=== PATIENT | female | born 1985 | race Caucasian/White ===

== ENCOUNTER 2016-10-15 03:04 | Inpatient (IN) | payer BC ==
[2016-10-15] MEDS ORDERED: Famotidine IV* 10 MG/ML 2 ML (20 mg) IV ONE (06:00)
[2016-10-15] MEDS ORDERED: Sodium Citrate/Citric Acid* 15 ML UDC PO ONE (06:00)
[2016-10-15] MEDS ORDERED: Sodium Citrate/Citric Acid* 15 ML UDC ONE (06:15)
[2016-10-15] MEDS ORDERED: Famotidine IV* 10 MG/ML 2 ML (20 mg) ONE (06:15)
[2016-10-15] MEDS ORDERED: Morphine PF AMP (0.5MG/ML)* 5 MG/10 ML AMP ONE (07:20)
[2016-10-15] MEDS ORDERED: OXYTOCIN* 10 UNITS/ML 1 ML VIAL ONE (07:25)
[2016-10-15] MEDS ORDERED: Phenylephrine IV* 40 MCG/ML 10 ML SYRINGE ONE (07:38)
[2016-10-15] MEDS ORDERED: ceFOXitin 2 GM IVPREMIX* 2 GM/50 ML BAG IVPB ONE (07:46)
[2016-10-15] MEDS ORDERED: ceFOXitin 2 GM IVPREMIX* 2 GM/50 ML BAG ONE (07:51)
[2016-10-15] MEDS ORDERED: EPHEDrine (Pressors)* 50 MG/ML VIAL ONE (08:10)
[2016-10-15] MEDS ORDERED: Ondansetron INJ* 2 MG/ML VIAL IV PRN (08:43)
[2016-10-15] MEDS ORDERED: HYDROmorphone* 1 MG/ML 1 ML SYR IV PRN (08:43)
[2016-10-15] MEDS ORDERED: Naloxone* 0.4 MG/ML 1 ML VIAL IV PRN (08:43)
[2016-10-15] MEDS ORDERED: DiMENhydriNATE IV* 50 MG/ML VIAL IV PUSH PRN (08:43)
[2016-10-15] MEDS ORDERED: fentaNYL* 50 MCG/ML 2 ML VIAL (100 MCG VIAL) IV PRN (08:43)
[2016-10-15] MEDS ORDERED: Nalbuphine* 20 MG/ML 1 ML VIAL IV PRN (08:43)
[2016-10-15] MEDS ORDERED: fentaNYL* 50 MCG/ML 2 ML VIAL (100 MCG VIAL) ONE (08:50)
[2016-10-15] MEDS ORDERED: oxyCODONE/Acetamin 5/325 MG* TAB PO PRN ×2 (08:51)
[2016-10-15] MEDS ORDERED: Glycerin ADULT SUPP PR PRN (10:10)
[2016-10-15] MEDS ORDERED: Ibuprofen TAB* 600 MG PO PRN (10:10)
[2016-10-15] MEDS ORDERED: Acetaminophen TAB* 325 MG PO PRN (10:10)
[2016-10-15] MEDS ORDERED: Dibucaine 1% 28.35 GM TUBE PR PRN (10:10)
[2016-10-15] MEDS ORDERED: Witch Hazel PAD* JAR TOPICAL PRN (10:10)
[2016-10-15] MEDS: Ibuprofen TAB* 600 MG PO SCH (10:12)
[2016-10-15] MEDS ORDERED: Oxytocin in LR* 20 UNITS/1,000 ML BAG IVPB SCH (11:00)
[2016-10-15] MEDS: Docusate CAP* 100 MG PO SCH ×2 (13:15→20:22)
[2016-10-15] MEDS: Simethicone CHEW TAB* 80 MG PO SCH ×3 (13:15→20:23)
[2016-10-15] MEDS: Nalbuphine* 20 MG/ML 1 ML VIAL IV PRN ×2 (15:33→23:12)
[2016-10-15] MEDS: Ketorolac INJ* 30 MG/ML 1 ML VIAL IV PRN (16:49)
[2016-10-16] MEDS: Ibuprofen TAB* 600 MG PO SCH ×5 (01:00→21:27)
[2016-10-16] MEDS: oxyCODONE/Acetamin 5/325 MG* TAB PO PRN ×4 (06:10→18:50)
[2016-10-16 06:28] LABS: Hematocrit 28 % (35-47); Hemoglobin 9.2 g/dl (12.0-16.0); Mean Corpuscular HGB Conc 33 g/dl (31-36); Mean Corpuscular Hemoglobin 29 pg (27-31); Mean Corpuscular Volume 87 fL (80-97); Mean Platelet Volume 11 um3 (7.4-10.4); Red Blood Count 3.21 10^6/ul (4.0-5.4); Red Cell Distribution Width 14 % (10.5-15); White Blood Count 15.3 10^3/ul (3.5-10.8)
[2016-10-16] MEDS: Ketorolac INJ* 30 MG/ML 1 ML VIAL IV PRN (08:35)
[2016-10-16] MEDS: Docusate CAP* 100 MG PO SCH ×3 (09:25→21:26)
[2016-10-16] MEDS: Ferrous Gluconate TAB* 324 MG TAB PO SCH ×2 (09:25→21:25)
[2016-10-16] MEDS: Simethicone CHEW TAB* 80 MG PO SCH ×4 (09:25→21:28)
--- NOTE | 2016-10-16 10:23 | OP ---
CC: Dr. John Paul Bullard* DATE OF OPERATION: 10/15/16 - ROOM #117 DATE OF : 81 SURGEON: Aryan Zee MD NUT GRINDER: Dr. John Paul Bullard. SECOND NUT GRINDER: Clive Velásquez CNM ANESTHESIOLOGIST: Dr. Reina. ANESTHESIA: Spinal anesthesia. PRE-OP DIAGNOSES: Full-term intrauterine , breech presentation, intrauterine growth restriction. POST-OP DIAGNOSES: Full-term intrauterine , breech presentation, intrauterine growth restriction. OPERATIVE PROCEDURE: Primary low-flap transverse section via Pfannenstiel. Uterus closed in 2 layers. ESTIMATED BLOOD LOSS: 600 cc. URINE OUTPUT: Per operative note, clear urine. FINDINGS: Viable male in the colleen breech presentation. Clear amniotic fluid. 's are 9 and 9. Weight was 5 pounds 2 ounces. Normal cord gases. Normal-appearing uterus. Normal-appearing fallopian tubes and ovaries bilaterally. COMPLICATIONS: None. COUNTS: Sponge, lap, and needle count were correct x2. CONDITION: The patient was brought to recovery room, awake and stable condition. DESCRIPTION OF PROCEDURE: The patient was brought the operating room. When spinal anesthesia was found to be adequate, the patient was prepped and draped in the usual sterile fashion in the dorsal supine position with a leftward tilt. A Pfannenstiel skin incision was made with a scalpel and carried down to the underlying layer of fascia. The fascial incision was extended with the Hoover scissors. The fascia was grasped with the Yamilet clamps and the rectus muscle was dissected using sharp and blunt dissection. The rectus muscle was found to be in the midline. Peritoneum was identified, tented up, and entered bluntly. Peritoneal incision was extended bluntly. The bladder blader was inserted. The vesicouterine peritoneum was identified and a bladder flap was created. The bladder blade was reinserted. A low-flap transverse incision was made on the uterus to the level of the membranes, the uterus was thick. The uterine incision was extended laterally bluntly. The membranes were ruptured. A small amount of clear amniotic fluid was encountered. The infant was delivered atraumatically from the colleen breech presentation. The cord was milked. The cord was clamped and cut, and the was handed off to the waiting boxing instructor, Dr. Aguilera. 's were 9 and 9. A segment of cord was sent for cord gases. The placenta was delivered. The placenta was sent to pathology. The uterus was exteriorized. The uterus was cleared of all clots and debris. The uterine incision was repaired using 0 Vicryl in a running locked fashion. A second layer of the same suture was used to imbricate and obtain excellent hemostasis. The ovaries and fallopian tubes were examined and found to be normal. The abdomen and pelvis were copiously irrigated with warm normal saline. Once again, the uterine incision was examined and found to be hemostatic. The uterus was returned to the pelvis. The gutters were cleared of all clots and debris, and again the uterine incision was examined and found to be hemostatic. The peritoneum was closed using 3-0 Vicryl. The subfascial layer was examined and found to be hemostatic. The fascia was closed using 0 Vicryl. The subcutaneous tissue was irrigated. Any small bleeders were cauterized with the Bovie and the skin was closed with 4-0 Monocryl in a subcuticular fashion. Steri-Strips were applied. A pressure dressing was applied and the patient was brought to the recovery room, awake and in stable condition. [id number]/[facility] #: [id number] MOY
[2016-10-17] MEDS: Ibuprofen TAB* 600 MG PO SCH ×4 (03:30→22:05)
[2016-10-17] MEDS: oxyCODONE/Acetamin 5/325 MG* TAB PO PRN ×4 (05:49→22:05)
[2016-10-17] MEDS: Ferrous Gluconate TAB* 324 MG TAB PO SCH ×2 (09:24→20:29)
[2016-10-17] MEDS: Simethicone CHEW TAB* 80 MG PO SCH ×4 (09:24→20:29)
[2016-10-17] MEDS: Docusate CAP* 100 MG PO SCH ×3 (09:24→20:30)
[2016-10-18] MEDS: Ibuprofen TAB* 600 MG PO SCH ×4 (04:45→23:03)
[2016-10-18] MEDS: oxyCODONE/Acetamin 5/325 MG* TAB PO PRN ×6 (07:32→23:02)
[2016-10-18] MEDS: Docusate CAP* 100 MG PO SCH ×3 (09:28→21:53)
[2016-10-18] MEDS: Ferrous Gluconate TAB* 324 MG TAB PO SCH ×2 (09:29→21:53)
[2016-10-18] MEDS: Simethicone CHEW TAB* 80 MG PO SCH ×4 (09:29→21:53)
[2016-10-19] MEDS: oxyCODONE/Acetamin 5/325 MG* TAB PO PRN ×4 (03:21→15:48)
[2016-10-19] MEDS: Ibuprofen TAB* 600 MG PO SCH ×3 (07:35→14:12)
[2016-10-19 07:52] VITALS: BP 119/78
[2016-10-19] MEDS: Simethicone CHEW TAB* 80 MG PO SCH ×2 (09:40→14:11)
[2016-10-19] MEDS: Docusate CAP* 100 MG PO SCH ×2 (09:40→14:11)
[2016-10-19] MEDS: Ferrous Gluconate TAB* 324 MG TAB PO SCH (09:40)
== END 2016-10-19 16:05 | disposition home or self-care (01) | DRG 540 ==
LOC: MCHOB 03:04 → UNDOADMIN 03:04 → MCHOB 06:02
PROVIDERS: ADMIT Obstetrics & Gynecology; ATTEND Obstetrics & Gynecology
PROC: 10D00Z1 Extraction of Products of Conception, Low, Open Approach (ICD-10-PCS; principal; 2016-10-15 07:45)
DX: O32.1XX0 Maternal care for breech presentation, not applicable or unspecified (principal); O36.5930 Maternal care for other known or suspected poor fetal growth, third trimester, not applicable or unspecified; Z3A.39 39 weeks gestation of pregnancy; Z37.0 Single live birth
CPT/HCPCS: 36415; 76815; 85025; 88307; A9270-GY; J0694; J1240; J1885; J2300; J2405; J2590; J3010